=== PATIENT | female | born 1975 | race Caucasian/White ===

== ENCOUNTER 2021-03-30 20:44 | Inpatient (IN) ==
[2021-03-30] MEDS ORDERED: Saline Nasal Spray 44 ML BOTTLE NS PRN (21:51)
[2021-03-30] MEDS ORDERED: Artificial Tears SOLN 15 ML BOTTLE BOTH EYES PRN (21:51)
[2021-03-30] MEDS ORDERED: Ondansetron ODT 4 MG TAB.RAPDIS PO PRN (21:51)
[2021-03-30] MEDS: *HR* OxyCODONE/APAP 5/325 TABLET PO PRN (22:15)
[2021-03-30] MEDS: ALPRAZolam 0.5 MG TABLET PO PRN (22:15)
[2021-03-30] MEDS ORDERED: D5% in Water 1,000 ML IVC PRN (22:58)
[2021-03-30] MEDS ORDERED: *HR* Dextrose 50 % in Water (Vial) 50 ML VIAL IVP PRN (22:58)
[2021-03-30] MEDS ORDERED: Dextrose Gel 15 GM/37.5 ML TUBE PO PRN ×2 (22:58)
[2021-03-30] MEDS: Calcium Acetate 667 MG CAPSULE PO SCH (23:08)
[2021-03-31] MEDS: hydrALAZINE 25 MG TABLET PO SCH ×5 (04:20→20:53)
[2021-03-31] MEDS: *HR* OxyCODONE/APAP 5/325 TABLET PO PRN (06:09)
[2021-03-31] MEDS: Insulin LISPRO 300 UNITS/3 ML VIAL SUBQ SCH ×4 (07:36→19:27)
[2021-03-31] MEDS ORDERED: NON-FORMULARY MEDICATION 1 EACH EACH (Insulin Aspart [Novolog Flexpen] 100 UNIT/ML Insuln. DT SCH (08:00)
[2021-03-31] MEDS: carvediloL 25 MG TABLET PO SCH ×2 (08:21→16:30)
[2021-03-31] MEDS: NIFEdipine XL (24 HR) 30 MG TAB.ER.24 PO SCH (08:21)
[2021-03-31] MEDS: Fluticasone Propionate Nasal 50 MCG/SPRAY BOTTLE NS SCH (08:21)
[2021-03-31] MEDS: Insulin DETEMIR 100 UNIT/ML X5UNITS SUBQ SCH (08:21)
[2021-03-31] MEDS: Sucralfate 1 GM TABLET PO SCH ×3 (08:21→16:30)
[2021-03-31] MEDS: Aspirin Enteric Coated 81 MG Tablet PO SCH (08:21)
[2021-03-31] MEDS: Lactobacillus 1 EACH CAP.SPRINK PO SCH ×2 (08:22→20:53)
[2021-03-31] MEDS: Calcium Acetate 667 MG CAPSULE PO SCH ×4 (08:22→20:52)
[2021-03-31] MEDS: predniSONE 10 MG TABLET PO SCH (08:22)
[2021-03-31] MEDS: Renal Vitamin 1 CAP CAPSULE PO SCH (08:32)
[2021-03-31] MEDS: Ondansetron 4 MG/2 ML VIAL IVP PRN (16:33)
[2021-03-31] MEDS: ALPRAZolam 0.5 MG TABLET PO PRN (20:52)
[2021-03-31] MEDS: Melatonin 3 MG TABLET PO PRN (20:53)
[2021-03-31] MEDS: ISAVUCONAZONIUM 186 MG PO SCH (20:58)
[2021-04-01 05:54] LABS: Basophils % 0.4 %; Eosinophils # 0.1 K/mcL (0.0-0.6); Eosinophils % 3.4 %; Hematocrit 22.1 % (35.3-44.9); Hemoglobin 7.7 g/dL (11.5-15.4); Immature Granulocytes % 0.4 % (0-4); Lymphocytes # 0.4 K/mcL (0.6-4.6); Lymphocytes % 14.4 %; Mean Corpuscular HGB Conc 34.8 g/dL (31.6-35.5); Mean Corpuscular Hemoglobin 31.3 pg (28.0-33.3); Mean Corpuscular Volume 89.8 fL (83.0-100.0); Mean Platelet Volume 9.7 fL (9.4-12.4); Monocytes # 0.3 K/mcL (0.0-1.3); Red Blood Count 2.46 M/mcL (3.82-4.97); Red Cell Distribution Width 14.4 % (11.5-14.5); Segmented Neutrophils % 70.4 %; White Blood Count 2.6 K/mcL (4.3-11.1)
[2021-04-01 06:10] LABS: Neutrophils # 1.8 K/mcL (1.6-8.9)
[2021-04-01 06:11] LABS: Albumin 2.8 g/dL (3.5-5.7); Albumin/Globulin Ratio 1.3 (1.1-2.2); Bilirubin,Total 0.4 mg/dL (0.3-1.0); Calcium 7.9 mg/dL (8.6-10.3); Globulin 2.2 g/dL (2.4-3.5); Platelet Count 88 K/mcL (140-400); Potassium 4.5 mEq/L (3.5-5.1)
[2021-04-01] MEDS: hydrALAZINE 25 MG TABLET PO SCH ×3 (06:27→20:35)
[2021-04-01] MEDS: Insulin LISPRO 300 UNITS/3 ML VIAL SUBQ SCH ×4 (07:25→20:34)
[2021-04-01] MEDS: predniSONE 10 MG TABLET PO SCH (07:44)
[2021-04-01] MEDS: NIFEdipine XL (24 HR) 30 MG TAB.ER.24 PO SCH (07:44)
[2021-04-01] MEDS: Aspirin Enteric Coated 81 MG Tablet PO SCH (07:44)
[2021-04-01] MEDS: Calcium Acetate 667 MG CAPSULE PO SCH ×4 (07:45→22:05)
[2021-04-01] MEDS: Lactobacillus 1 EACH CAP.SPRINK PO SCH ×2 (07:45→20:35)
[2021-04-01] MEDS: Ondansetron 4 MG/2 ML VIAL IVP PRN (07:47)
[2021-04-01] MEDS: carvediloL 25 MG TABLET PO SCH ×2 (07:52→16:41)
[2021-04-01] MEDS: Renal Vitamin 1 CAP CAPSULE PO SCH (07:52)
[2021-04-01] MEDS: Fluticasone Propionate Nasal 50 MCG/SPRAY BOTTLE NS SCH (07:55)
[2021-04-01] MEDS: Insulin DETEMIR 100 UNIT/ML X5UNITS SUBQ SCH (07:59)
[2021-04-01] MEDS: Sucralfate 1 GM TABLET PO SCH ×3 (08:00→16:41)
[2021-04-01] MEDS: Melatonin 3 MG TABLET PO PRN (20:34)
[2021-04-01] MEDS: ALPRAZolam 0.5 MG TABLET PO PRN (20:35)
[2021-04-01] MEDS: ISAVUCONAZONIUM 186 MG PO SCH (20:36)
[2021-04-02] MEDS: hydrALAZINE 25 MG TABLET PO SCH ×3 (06:06→20:04)
[2021-04-02] MEDS: Insulin LISPRO 300 UNITS/3 ML VIAL SUBQ SCH ×4 (06:49→20:05)
[2021-04-02] MEDS: Ondansetron 4 MG/2 ML VIAL IVP PRN ×2 (07:48→17:02)
[2021-04-02] MEDS: Aspirin Enteric Coated 81 MG Tablet PO SCH (07:52)
[2021-04-02] MEDS: Sucralfate 1 GM TABLET PO SCH ×3 (07:52→17:08)
[2021-04-02] MEDS: Calcium Acetate 667 MG CAPSULE PO SCH ×3 (07:53→17:04)
[2021-04-02] MEDS: carvediloL 25 MG TABLET PO SCH ×2 (07:53→17:04)
[2021-04-02] MEDS: NIFEdipine XL (24 HR) 30 MG TAB.ER.24 PO SCH (07:53)
[2021-04-02] MEDS: Renal Vitamin 1 CAP CAPSULE PO SCH (07:53)
[2021-04-02] MEDS: Lactobacillus 1 EACH CAP.SPRINK PO SCH ×2 (07:53→20:04)
[2021-04-02] MEDS: predniSONE 10 MG TABLET PO SCH (07:54)
[2021-04-02] MEDS: Ergocalciferol (VIT D2) 50,000 UNIT (1.25MG) CAP PO SCH (08:01)
[2021-04-02] MEDS: Fluticasone Propionate Nasal 50 MCG/SPRAY BOTTLE NS SCH (08:02)
[2021-04-02] MEDS: CloNIDine Patch 0.1 MG PATCH (WEEKLY) TD SCH ×2 (08:06→08:30)
[2021-04-02] MEDS ORDERED: Insulin LISPRO 300 UNITS/3 ML VIAL SUBQ ONE (08:22)
[2021-04-02] MEDS: Insulin DETEMIR 100 UNIT/ML X5UNITS SUBQ SCH ×2 (08:31→20:13)
[2021-04-02] MEDS ORDERED: Insulin DETEMIR 100 UNIT/ML X5UNITS SUBQ SCH (09:00)
[2021-04-02] MEDS ORDERED: Insulin DETEMIR 100 UNIT/ML X5UNITS SUBQ ONE (09:00)
[2021-04-02] MEDS: ISAVUCONAZONIUM 186 MG PO SCH ×2 (19:40→20:01)
[2021-04-02] MEDS: ALPRAZolam 0.5 MG TABLET PO PRN (20:03)
[2021-04-02] MEDS: Melatonin 3 MG TABLET PO PRN (20:04)
[2021-04-03] MEDS: Insulin LISPRO 300 UNITS/3 ML VIAL SUBQ SCH ×4 (07:22→20:45)
[2021-04-03] MEDS: Renal Vitamin 1 CAP CAPSULE PO SCH (07:31)
[2021-04-03] MEDS: Sucralfate 1 GM TABLET PO SCH ×3 (07:31→16:30)
[2021-04-03] MEDS: NIFEdipine XL (24 HR) 30 MG TAB.ER.24 PO SCH (07:31)
[2021-04-03] MEDS: Calcium Acetate 667 MG CAPSULE PO SCH ×3 (07:31→16:30)
[2021-04-03] MEDS: predniSONE 10 MG TABLET PO SCH (07:31)
[2021-04-03] MEDS: carvediloL 25 MG TABLET PO SCH ×2 (07:31→16:30)
[2021-04-03] MEDS: Lactobacillus 1 EACH CAP.SPRINK PO SCH ×2 (07:31→20:44)
[2021-04-03] MEDS: Aspirin Enteric Coated 81 MG Tablet PO SCH (07:31)
[2021-04-03] MEDS: hydrALAZINE 25 MG TABLET PO SCH ×3 (07:32→22:24)
[2021-04-03] MEDS: Fluticasone Propionate Nasal 50 MCG/SPRAY BOTTLE NS SCH (07:33)
[2021-04-03] MEDS: Insulin DETEMIR 100 UNIT/ML X5UNITS SUBQ SCH ×2 (08:41→20:45)
[2021-04-03] MEDS: Ondansetron 4 MG/2 ML VIAL IVP PRN (11:41)
[2021-04-03] MEDS: Melatonin 3 MG TABLET PO PRN (20:44)
[2021-04-03] MEDS: ALPRAZolam 0.5 MG TABLET PO PRN (20:44)
[2021-04-04 05:43] LABS: Basophils % 0.3 %; Eosinophils # 0.1 K/mcL (0.0-0.6); Eosinophils % 1.7 %; Hemoglobin 7.5 g/dL (11.5-15.4); Immature Granulocytes % 0.7 % (0-4); Lymphocytes # 0.6 K/mcL (0.6-4.6); Lymphocytes % 21.1 %; Mean Corpuscular HGB Conc 34.1 g/dL (31.6-35.5); Mean Corpuscular Hemoglobin 31.6 pg (28.0-33.3); Mean Corpuscular Volume 92.8 fL (83.0-100.0); Monocytes # 0.5 K/mcL (0.0-1.3); Monocytes % 17.6 %; Neutrophils # 1.7 K/mcL (1.6-8.9); Platelet Count 104 K/mcL (140-400); Red Blood Count 2.37 M/mcL (3.82-4.97); Red Cell Distribution Width 15.7 % (11.5-14.5); Segmented Neutrophils % 58.6 %; White Blood Count 2.9 K/mcL (4.3-11.1)
[2021-04-04 06:05] LABS: Calcium 7.9 mg/dL (8.6-10.3); Potassium 4.6 mEq/L (3.5-5.1)
[2021-04-04] MEDS: hydrALAZINE 25 MG TABLET PO SCH ×3 (06:58→22:00)
[2021-04-04] MEDS: Insulin LISPRO 300 UNITS/3 ML VIAL SUBQ SCH ×4 (07:27→20:34)
[2021-04-04] MEDS: carvediloL 25 MG TABLET PO SCH ×2 (07:50→17:23)
[2021-04-04] MEDS: Sucralfate 1 GM TABLET PO SCH ×3 (07:52→17:23)
[2021-04-04] MEDS: Aspirin Enteric Coated 81 MG Tablet PO SCH (07:53)
[2021-04-04] MEDS: Ondansetron 4 MG/2 ML VIAL IVP PRN (07:53)
[2021-04-04] MEDS: Renal Vitamin 1 CAP CAPSULE PO SCH (07:53)
[2021-04-04] MEDS: NIFEdipine XL (24 HR) 30 MG TAB.ER.24 PO SCH (07:53)
[2021-04-04] MEDS: Lactobacillus 1 EACH CAP.SPRINK PO SCH ×2 (07:53→20:32)
[2021-04-04] MEDS: Calcium Acetate 667 MG CAPSULE PO SCH ×3 (07:53→17:23)
[2021-04-04] MEDS: predniSONE 10 MG TABLET PO SCH (07:53)
[2021-04-04] MEDS: Fluticasone Propionate Nasal 50 MCG/SPRAY BOTTLE NS SCH (07:54)
[2021-04-04] MEDS: Insulin DETEMIR 100 UNIT/ML X5UNITS SUBQ SCH ×2 (08:47→20:33)
[2021-04-04] MEDS ORDERED: *HR* OxyCODONE Oral Soln 5 MG/5 ML UD.LIQ PO PRN (10:26)
[2021-04-04] MEDS: *HR* OxyCODONE Oral Soln 5 MG/5 ML UD.LIQ PO PRN (17:41)
[2021-04-04] MEDS: ISAVUCONAZONIUM 186 MG PO SCH (20:33)
[2021-04-04] MEDS: Melatonin 3 MG TABLET PO PRN (22:00)
[2021-04-04] MEDS: ALPRAZolam 0.5 MG TABLET PO PRN (22:00)
[2021-04-05] MEDS: hydrALAZINE 25 MG TABLET PO SCH ×3 (05:40→23:13)
[2021-04-05] MEDS: Ondansetron 4 MG/2 ML VIAL IVP PRN (05:40)
[2021-04-05] MEDS: *HR* OxyCODONE Oral Soln 5 MG/5 ML UD.LIQ PO PRN ×2 (05:41→11:34)
[2021-04-05] MEDS: Aspirin Enteric Coated 81 MG Tablet PO SCH (08:13)
[2021-04-05] MEDS: predniSONE 10 MG TABLET PO SCH (08:13)
[2021-04-05] MEDS: Sucralfate 1 GM TABLET PO SCH ×3 (08:14→16:29)
[2021-04-05] MEDS: Lactobacillus 1 EACH CAP.SPRINK PO SCH ×2 (08:14→19:39)
[2021-04-05] MEDS: Calcium Acetate 667 MG CAPSULE PO SCH ×3 (08:14→16:29)
[2021-04-05] MEDS: Renal Vitamin 1 CAP CAPSULE PO SCH (08:15)
[2021-04-05] MEDS: NIFEdipine XL (24 HR) 30 MG TAB.ER.24 PO SCH (08:15)
[2021-04-05] MEDS: carvediloL 25 MG TABLET PO SCH ×2 (08:15→16:29)
[2021-04-05] MEDS: Fluticasone Propionate Nasal 50 MCG/SPRAY BOTTLE NS SCH (08:16)
[2021-04-05] MEDS: Insulin LISPRO 300 UNITS/3 ML VIAL SUBQ SCH ×4 (08:16→19:39)
[2021-04-05] MEDS ORDERED: polyethylene glycoL 3350 17 GM POWD.PACK PO SCH (10:31)
[2021-04-05] MEDS: Insulin DETEMIR 100 UNIT/ML X5UNITS SUBQ SCH (11:12)
[2021-04-05] MEDS ORDERED: *HR* OxyCODONE Oral Soln 5 MG/5 ML UD.LIQ PO PRN (15:18)
[2021-04-05] MEDS: ISAVUCONAZONIUM 186 MG PO SCH (19:39)
[2021-04-05] MEDS: ALPRAZolam 0.5 MG TABLET PO PRN (21:13)
[2021-04-05] MEDS: Melatonin 3 MG TABLET PO PRN (21:13)
[2021-04-06] MEDS: Ondansetron 4 MG/2 ML VIAL IVP PRN (05:49)
[2021-04-06] MEDS: hydrALAZINE 25 MG TABLET PO SCH ×3 (05:55→17:27)
[2021-04-06] MEDS ORDERED: Insulin LISPRO 300 UNITS/3 ML VIAL SUBQ STA (07:37)
[2021-04-06] MEDS ORDERED: Insulin LISPRO 300 UNITS/3 ML VIAL SUBQ SCH (07:39)
[2021-04-06] MEDS: Insulin LISPRO 300 UNITS/3 ML VIAL SUBQ SCH ×5 (07:52→22:06)
[2021-04-06] MEDS: Sucralfate 1 GM TABLET PO SCH ×3 (07:56→17:08)
[2021-04-06] MEDS: Calcium Acetate 667 MG CAPSULE PO SCH ×3 (07:57→17:06)
[2021-04-06] MEDS: carvediloL 25 MG TABLET PO SCH ×2 (08:00→17:07)
[2021-04-06] MEDS: NIFEdipine XL (24 HR) 30 MG TAB.ER.24 PO SCH (08:01)
[2021-04-06] MEDS: Fluticasone Propionate Nasal 50 MCG/SPRAY BOTTLE NS SCH (08:02)
[2021-04-06] MEDS: Lactobacillus 1 EACH CAP.SPRINK PO SCH ×2 (08:14→21:26)
[2021-04-06] MEDS: Aspirin Enteric Coated 81 MG Tablet PO SCH (08:14)
[2021-04-06] MEDS: predniSONE 10 MG TABLET PO SCH (08:14)
[2021-04-06] MEDS: Renal Vitamin 1 CAP CAPSULE PO SCH (08:16)
[2021-04-06] MEDS: Insulin DETEMIR 100 UNIT/ML X5UNITS SUBQ SCH (08:17)
[2021-04-06] MEDS: polyethylene glycoL 3350 17 GM POWD.PACK PO SCH (17:08)
[2021-04-06] MEDS ORDERED: Insulin DETEMIR 100 UNIT/ML X5UNITS SUBQ SCH (21:00)
[2021-04-06] MEDS: ISAVUCONAZONIUM 186 MG PO SCH (21:27)
[2021-04-06] MEDS: Melatonin 3 MG TABLET PO PRN (21:28)
[2021-04-06] MEDS: ALPRAZolam 0.5 MG TABLET PO PRN (21:28)
[2021-04-07] MEDS: hydrALAZINE 25 MG TABLET PO SCH ×3 (05:43→19:45)
[2021-04-07] MEDS ORDERED: Insulin LISPRO 300 UNITS/3 ML VIAL SUBQ SCH (07:32)
[2021-04-07] MEDS: Aspirin Enteric Coated 81 MG Tablet PO SCH (07:49)
[2021-04-07] MEDS: carvediloL 25 MG TABLET PO SCH ×2 (07:49→16:42)
[2021-04-07] MEDS: Sucralfate 1 GM TABLET PO SCH ×3 (07:49→16:38)
[2021-04-07] MEDS: Renal Vitamin 1 CAP CAPSULE PO SCH (07:49)
[2021-04-07] MEDS: Lactobacillus 1 EACH CAP.SPRINK PO SCH ×2 (07:50→19:51)
[2021-04-07] MEDS: predniSONE 10 MG TABLET PO SCH (07:50)
[2021-04-07] MEDS: NIFEdipine XL (24 HR) 30 MG TAB.ER.24 PO SCH (07:51)
[2021-04-07] MEDS: Calcium Acetate 667 MG CAPSULE PO SCH ×3 (07:52→16:38)
[2021-04-07] MEDS: Fluticasone Propionate Nasal 50 MCG/SPRAY BOTTLE NS SCH (07:52)
[2021-04-07] MEDS: Insulin LISPRO 300 UNITS/3 ML VIAL SUBQ SCH ×5 (07:57→19:46)
[2021-04-07] MEDS: Insulin DETEMIR 100 UNIT/ML X5UNITS SUBQ SCH (08:24)
[2021-04-07] MEDS: Artificial Tears SOLN 15 ML BOTTLE LEFT EYE SCH ×4 (11:50→19:53)
[2021-04-07] MEDS: polyethylene glycoL 3350 17 GM POWD.PACK PO SCH (17:12)
[2021-04-07] MEDS: ALPRAZolam 0.5 MG TABLET PO PRN (19:50)
[2021-04-07] MEDS: Melatonin 3 MG TABLET PO PRN (19:51)
[2021-04-07] MEDS: ISAVUCONAZONIUM 186 MG PO SCH (19:52)
[2021-04-08] MEDS: hydrALAZINE 25 MG TABLET PO SCH ×3 (04:58→21:09)
[2021-04-08 06:16] LABS: Eosinophils # 0.1 K/mcL (0.0-0.6); Eosinophils % 2.3 %; Hematocrit 23.2 % (35.3-44.9); Hemoglobin 7.5 g/dL (11.5-15.4); Immature Granulocytes % 0.5 % (0-4); Lymphocytes # 0.5 K/mcL (0.6-4.6); Mean Corpuscular HGB Conc 32.3 g/dL (31.6-35.5); Mean Corpuscular Hemoglobin 31.6 pg (28.0-33.3); Mean Corpuscular Volume 97.9 fL (83.0-100.0); Mean Platelet Volume 10.3 fL (9.4-12.4); Monocytes # 0.4 K/mcL (0.0-1.3); Monocytes % 17.5 %; Red Blood Count 2.37 M/mcL (3.82-4.97); Red Cell Distribution Width 19.3 % (11.5-14.5); Segmented Neutrophils % 56.7 %; White Blood Count 2.2 K/mcL (4.3-11.1)
[2021-04-08 06:17] LABS: Neutrophils # 1.3 K/mcL (1.6-8.9); Platelet Count 90 K/mcL (140-400)
[2021-04-08] MEDS: Insulin LISPRO 300 UNITS/3 ML VIAL SUBQ SCH ×4 (07:32→21:00)
[2021-04-08] MEDS: Sucralfate 1 GM TABLET PO SCH ×3 (08:17→16:43)
[2021-04-08] MEDS: Calcium Acetate 667 MG CAPSULE PO SCH ×3 (08:18→16:43)
[2021-04-08] MEDS: carvediloL 25 MG TABLET PO SCH ×2 (08:18→16:43)
[2021-04-08] MEDS: NIFEdipine XL (24 HR) 30 MG TAB.ER.24 PO SCH (09:37)
[2021-04-08] MEDS: Artificial Tears SOLN 15 ML BOTTLE LEFT EYE SCH ×4 (09:37→19:45)
[2021-04-08] MEDS: Renal Vitamin 1 CAP CAPSULE PO SCH (09:37)
[2021-04-08] MEDS: Insulin DETEMIR 100 UNIT/ML X5UNITS SUBQ SCH (09:37)
[2021-04-08] MEDS: predniSONE 10 MG TABLET PO SCH (09:38)
[2021-04-08] MEDS: Fluticasone Propionate Nasal 50 MCG/SPRAY BOTTLE NS SCH (09:38)
[2021-04-08] MEDS: Lactobacillus 1 EACH CAP.SPRINK PO SCH ×2 (09:38→19:43)
[2021-04-08] MEDS: Aspirin Enteric Coated 81 MG Tablet PO SCH (09:38)
[2021-04-08] MEDS: polyethylene glycoL 3350 17 GM POWD.PACK PO SCH (16:44)
[2021-04-08] MEDS: Melatonin 3 MG TABLET PO PRN (19:42)
[2021-04-08] MEDS: ALPRAZolam 0.5 MG TABLET PO PRN (19:42)
[2021-04-08] MEDS: ISAVUCONAZONIUM 186 MG PO SCH (19:44)
[2021-04-09] MEDS: Insulin LISPRO 300 UNITS/3 ML VIAL SUBQ SCH ×5 (03:06→21:14)
[2021-04-09] MEDS: hydrALAZINE 25 MG TABLET PO SCH ×3 (05:16→20:57)
[2021-04-09] MEDS: NIFEdipine XL (24 HR) 30 MG TAB.ER.24 PO SCH (07:57)
[2021-04-09] MEDS: Lactobacillus 1 EACH CAP.SPRINK PO SCH ×2 (07:57→20:56)
[2021-04-09] MEDS: Ergocalciferol (VIT D2) 50,000 UNIT (1.25MG) CAP PO SCH (07:57)
[2021-04-09] MEDS: Sucralfate 1 GM TABLET PO SCH ×3 (07:57→16:53)
[2021-04-09] MEDS: predniSONE 10 MG TABLET PO SCH (07:57)
[2021-04-09] MEDS: Aspirin Enteric Coated 81 MG Tablet PO SCH (07:57)
[2021-04-09] MEDS: Renal Vitamin 1 CAP CAPSULE PO SCH (07:57)
[2021-04-09] MEDS: Fluticasone Propionate Nasal 50 MCG/SPRAY BOTTLE NS SCH (07:58)
[2021-04-09] MEDS: Artificial Tears SOLN 15 ML BOTTLE LEFT EYE SCH ×4 (07:58→20:57)
[2021-04-09] MEDS: carvediloL 25 MG TABLET PO SCH ×2 (07:58→16:53)
[2021-04-09] MEDS: Calcium Acetate 667 MG CAPSULE PO SCH ×3 (07:58→16:58)
[2021-04-09] MEDS: CloNIDine Patch 0.1 MG PATCH (WEEKLY) TD SCH (08:15)
[2021-04-09] MEDS: Insulin DETEMIR 100 UNIT/ML X5UNITS SUBQ SCH (08:31)
[2021-04-09] MEDS ORDERED: CloNIDine Patch 0.3 MG PATCH (WEEKLY) TD SCH (09:00)
[2021-04-09] MEDS: polyethylene glycoL 3350 17 GM POWD.PACK PO SCH (16:54)
[2021-04-09] MEDS: Melatonin 3 MG TABLET PO PRN (20:57)
[2021-04-09] MEDS: ISAVUCONAZONIUM 186 MG PO SCH (20:57)
[2021-04-10] MEDS: Insulin LISPRO 300 UNITS/3 ML VIAL SUBQ SCH ×7 (00:56→21:14)
[2021-04-10] MEDS: hydrALAZINE 25 MG TABLET PO SCH ×3 (06:27→21:13)
[2021-04-10] MEDS: predniSONE 10 MG TABLET PO SCH (08:28)
[2021-04-10] MEDS: carvediloL 25 MG TABLET PO SCH ×2 (08:29→16:35)
[2021-04-10] MEDS: Renal Vitamin 1 CAP CAPSULE PO SCH (08:29)
[2021-04-10] MEDS: NIFEdipine XL (24 HR) 30 MG TAB.ER.24 PO SCH (08:29)
[2021-04-10] MEDS: Insulin DETEMIR 100 UNIT/ML X5UNITS SUBQ SCH (08:29)
[2021-04-10] MEDS: Lactobacillus 1 EACH CAP.SPRINK PO SCH ×2 (08:29→21:13)
[2021-04-10] MEDS: Aspirin Enteric Coated 81 MG Tablet PO SCH (08:29)
[2021-04-10] MEDS: Artificial Tears SOLN 15 ML BOTTLE LEFT EYE SCH ×4 (08:30→21:14)
[2021-04-10] MEDS: Fluticasone Propionate Nasal 50 MCG/SPRAY BOTTLE NS SCH (08:30)
[2021-04-10] MEDS: Sucralfate 1 GM TABLET PO SCH ×3 (08:43→16:35)
[2021-04-10] MEDS: polyethylene glycoL 3350 17 GM POWD.PACK PO SCH (16:36)
[2021-04-10] MEDS: Melatonin 3 MG TABLET PO PRN (21:13)
[2021-04-10] MEDS: ALPRAZolam 0.5 MG TABLET PO PRN (21:13)
[2021-04-10] MEDS: ISAVUCONAZONIUM 186 MG PO SCH (21:14)
[2021-04-11] MEDS: hydrALAZINE 25 MG TABLET PO SCH ×3 (06:20→20:54)
[2021-04-11] MEDS: NIFEdipine XL (24 HR) 30 MG TAB.ER.24 PO SCH (08:01)
[2021-04-11] MEDS: Aspirin Enteric Coated 81 MG Tablet PO SCH (08:02)
[2021-04-11] MEDS: carvediloL 25 MG TABLET PO SCH ×2 (08:03→16:31)
[2021-04-11] MEDS: Sucralfate 1 GM TABLET PO SCH ×3 (08:04→16:30)
[2021-04-11] MEDS: Renal Vitamin 1 CAP CAPSULE PO SCH (08:05)
[2021-04-11] MEDS: Lactobacillus 1 EACH CAP.SPRINK PO SCH ×2 (08:06→20:54)
[2021-04-11] MEDS: predniSONE 10 MG TABLET PO SCH (08:07)
[2021-04-11] MEDS: Insulin DETEMIR 100 UNIT/ML X5UNITS SUBQ SCH (08:16)
[2021-04-11] MEDS: Insulin LISPRO 300 UNITS/3 ML VIAL SUBQ SCH ×4 (08:20→20:55)
[2021-04-11] MEDS: Fluticasone Propionate Nasal 50 MCG/SPRAY BOTTLE NS SCH (08:25)
[2021-04-11] MEDS: Artificial Tears SOLN 15 ML BOTTLE LEFT EYE SCH ×4 (08:27→20:55)
[2021-04-11] MEDS: polyethylene glycoL 3350 17 GM POWD.PACK PO SCH (16:36)
[2021-04-11] MEDS: ISAVUCONAZONIUM 186 MG PO SCH (20:54)
[2021-04-11] MEDS: Melatonin 3 MG TABLET PO PRN (20:55)
[2021-04-12] MEDS: hydrALAZINE 25 MG TABLET PO SCH (06:30)
[2021-04-12 06:55] VITALS: BP 159/74
[2021-04-12] MEDS: NIFEdipine XL (24 HR) 30 MG TAB.ER.24 PO SCH (07:43)
[2021-04-12] MEDS: carvediloL 25 MG TABLET PO SCH (07:44)
[2021-04-12] MEDS: Sucralfate 1 GM TABLET PO SCH ×2 (07:45→11:36)
[2021-04-12] MEDS: Aspirin Enteric Coated 81 MG Tablet PO SCH (07:45)
[2021-04-12] MEDS: Renal Vitamin 1 CAP CAPSULE PO SCH (07:45)
[2021-04-12] MEDS: Lactobacillus 1 EACH CAP.SPRINK PO SCH (07:46)
[2021-04-12] MEDS: predniSONE 10 MG TABLET PO SCH (07:47)
[2021-04-12] MEDS: Insulin LISPRO 300 UNITS/3 ML VIAL SUBQ SCH ×2 (07:48→11:28)
[2021-04-12] MEDS: Artificial Tears SOLN 15 ML BOTTLE LEFT EYE SCH (07:55)
[2021-04-12] MEDS: Fluticasone Propionate Nasal 50 MCG/SPRAY BOTTLE NS SCH (07:55)
[2021-04-12] MEDS: Insulin DETEMIR 100 UNIT/ML X5UNITS SUBQ SCH (07:57)
== END 2021-04-12 12:59 | disposition home health service (06) | DRG 945 ==
LOC: INPPIK 20:48
PROVIDERS: ADMIT Family Medicine; ATTEND Family Medicine